=== PATIENT | male | born 1945 | race Caucasian/White ===

== ENCOUNTER 2022-06-05 13:17 | Outpatient (CLI) | payer MEDICARE, BC, SELFPAY ==
[2022-06-05 22:26] LABS: Albumin* 4.4 g/dL (3.3-5.0); Chloride* 104 mmol/L (96-114); Sodium* 139 mmol/L (135-149)
[2022-06-05 22:27] LABS: Potassium* 4.7 mmol/L (3.6-5.1)
[2022-06-05 22:29] LABS: Alkaline Phosphatase* 79 U/L (40-150); Aspartate Amino Transferase* 33 U/L (12-35); Bilirubin Total* 1.2 mg/dL (0.1-1.5); Blood Urea Nitrogen* 15 mg/dL (7-30); Carbon Dioxide* 25 mmol/L (20-32); Cholesterol* 177 mg/dL (90-199); Creatinine* 0.8 mg/dL (0.5-1.5); Estimated Glomerular Filt Rate 92 ml/min; Glucose* 91 mg/dL (60-115); Total Protein* 6.8 g/dL (6.0-8.3)
[2022-06-05 22:30] LABS: Alanine Aminotransferase* 39 U/L (4-50); Calcium* 9.4 mg/dL (8.4-10.6); HDL Cholesterol* 65 mg/dL (>=40); LDL Cholesterol Calculated 84 mg/dL (<100); Triglycerides* 142 mg/dL (40-149)
[2022-06-05 23:18] LABS: Hepatitis C Virus Antibody* Negative (Negative)
== END 2022-06-05 13:18 | disposition home or self-care (01) ==
PROVIDERS: PCP Family Medicine; Visit Provider Family Medicine
DX: Z00.00 Encounter for general adult medical examination without abnormal findings (principal); E03.8 Other specified hypothyroidism; I10 Essential (primary) hypertension; E78.5 Hyperlipidemia, unspecified; Z11.59 Encounter for screening for other viral diseases
CPT/HCPCS: 80053; 80061; 84443; 86803

== ENCOUNTER 2023-06-15 13:29 | Outpatient (CLI) | payer MEDICARE, BC, SELFPAY | END 2023-06-15 13:30 | disposition home or self-care (01) | PROVIDERS: PCP Family Medicine; Visit Provider Family Medicine | DX: Z00.00 Encounter for general adult medical examination without abnormal findings (principal); E78.5 Hyperlipidemia, unspecified; I10 Essential (primary) hypertension; E03.8 Other specified hypothyroidism; Z12.5 Encounter for screening for malignant neoplasm of prostate; Z13.6 Encounter for screening for cardiovascular disorders | CPT/HCPCS: 80053; 80061; 82043; 82570; 84153; 84156; 84443 ==

== ENCOUNTER 2024-08-08 13:34 | Outpatient (CLI) | payer MEDICARE, BC, SELFPAY | END 2024-08-08 13:35 | disposition home or self-care (01) | PROVIDERS: PCP Family Medicine; Visit Provider Family Medicine | DX: E03.8 Other specified hypothyroidism (principal); I10 Essential (primary) hypertension; Z12.5 Encounter for screening for malignant neoplasm of prostate | CPT/HCPCS: 80053; 82043; 82570; 84443; G0103 ==